=== PATIENT | male | born 1960 | race Caucasian/White ===

== ENCOUNTER 2017-04-09 08:58 | Emergency (ER) | payer MEDICARE ==
[~2017-04-09] VITALS: Ht 193 cm; Wt 100.7 kg
[~2017-04-09 08:58] MED LIST: ACETAMINOPHEN500 MG PO; ALPR1 PO; AMLO5 PO; ANTACID PO; ASPI81EC PO; Abilify5 MG; BUSP15 PO; CARB200 PO; CHLO25 PO; DULO30 PO; DULO60 PO; ESOM20 PO; IBUP600 PO; LAMO100 PO; LAMO25 PO; LIDO5TP TOP; LISI20 PO; LOPE2C PO; Lithium Carbon300 M1 PO; MEDICAL MARIJUANA; METO50 PO; METO50ER PO; MORP60ER PO; Mobic15 MG; Norco 5-325 Ta1 EACH PO; OLAN5 PO; OMEP20ER PO; OMEPRAZOLE MAGN20 MG PO; ONDA4ODT MM; ONDA8ODT MM; OXYACE5T PO; OXYC15ER PO; OXYC30ER PO; OXYC40ER PO; OXYC5 PO; Oxycodone HCl20 M1; POTCHL20ER PO; PRAZ1 PO; PROC10 PO; PROM25 PO; QUET25 PO; RXTRAM50 PO; SLOWMAG; TAMS.4ER PO; TRAM50 PO; Zofran Odt4 MG PO; [UNRECOGNIZED DRUG - REMARK]
[2017-04-09] MEDS ORDERED: OLAN5 PO (09:08)
[2017-04-09] MEDS ORDERED: TAMS.4ER PO (09:08)
[2017-04-09] MEDS ORDERED: Bactrim Ds Tab1 EACH PO (09:27)
== END 2017-04-09 09:32 | disposition home or self-care (01) ==
LOC: ER 08:58
DX: L02.31 Cutaneous abscess of buttock (principal); I48.91 Unspecified atrial fibrillation; I10 Essential (primary) hypertension; F17.200 Nicotine dependence, unspecified, uncomplicated; Z88.8 Allergy status to other drugs, medicaments and biological substances; Z88.6 Allergy status to analgesic agent; Z79.899 Other long term (current) drug therapy; Z96.641 Presence of right artificial hip joint
CPT/HCPCS: 10061; 87070; 87205; 99283

== ENCOUNTER → 2017-05-16 | Outpatient (CLI) | payer MEDICARE ==
[~2017-05-16] MED LIST changes: +Bactrim Ds Tab1 EACH PO
== END ==
LOC: LAB SHORT 17:00
DX: E55.9 Vitamin D deficiency, unspecified (principal)
CPT/HCPCS: 82306

== ENCOUNTER → 2017-09-05 | Outpatient (CLI) | payer MEDICARE | LOC: LAB SHORT 11:43 → LAB 11:43 | DX: Z51.81 Encounter for therapeutic drug level monitoring (principal); F11.93 Opioid use, unspecified with withdrawal; Z79.899 Other long term (current) drug therapy | CPT/HCPCS: G0480 ==

== ENCOUNTER → 2019-04-08 | Outpatient (CLI) | payer OTHER | END | disposition home or self-care (01) | LOC: LAB SHORT 10:44 → LAB 10:44 | DX: F11.20 Opioid dependence, uncomplicated (principal) | CPT/HCPCS: G0480 ==

== ENCOUNTER → 2019-11-20 | Outpatient (CLI) | payer OTHER | LOC: LAB SHORT 14:45 → LAB 14:45 | DX: L02.31 Cutaneous abscess of buttock (principal) | CPT/HCPCS: 87070; 87075; 87205 ==